=== PATIENT | male | born 1960 | race Caucasian/White ===

== ENCOUNTER 2016-07-16 08:02 | Inpatient (IN) | payer BC ==
[2016-07-12 13:36] VITALS: Ht 174 cm; Wt 160.1 kg
[2016-07-13 07:17] VITALS: BP_SYST 120; RESP 20; TEMP 99.5
[2016-07-16] VITALS (10 sets, daily range): BP systolic 101–143; RESP 16–21; TEMP 96.8–99.5
[~2016-07-16] VITALS: Ht 174 cm; Wt 160.1 kg
[2016-07-16] MEDS ORDERED: CLINDAMYCIN 900 MG in DEXTROSE 5% 50 ML IV ONE (08:30)
[2016-07-16] MEDS ORDERED: MIDAZOLAM 2 MG/2 ML INJ IV ONE (09:10)
[2016-07-16] MEDS ORDERED: LACT RINGERS 1,000 ML IV SCH (09:10)
[2016-07-16] MEDS ORDERED: GLYCOPYRROLATE 0.2 MG/ML VIAL IV ONE ×2 (09:10→14:12)
[2016-07-16] MEDS ORDERED: LIDOCAINE 1% BUFFERED 1 ML SYR INTRADERM PRN (09:10)
[2016-07-16] MEDS ORDERED: MEPERIDINE 25 MG/ML IV PRN (11:25)
[2016-07-16] MEDS ORDERED: ONDANSETRON 4 MG VIAL IV PRN (11:25)
[2016-07-16] MEDS ORDERED: OXYCODONE 5 MG TAB PO PRN ×2 (11:25→12:50)
[2016-07-16] MEDS ORDERED: MORPHINE 4 MG/ML SYR IV PRN ×2 (11:25→12:50)
[2016-07-16] MEDS ORDERED: MORPHINE 2 MG/ML SYR IV PRN ×2 (11:25→12:50)
[2016-07-16] MEDS ORDERED: ACETAMINOPHEN 325 MG TAB PO PRN (12:50)
[2016-07-16] MEDS: DILAUDID 1 MG/ML AMP IV PRN ×2 (13:00→13:10)
[2016-07-16] MEDS: OXYCODONE 5 MG TAB PO PRN ×2 (13:46→15:27)
[2016-07-16] MEDS ORDERED: METHYLPREDNISOLONE ACETATE 40 MG/ML IM ONE (13:52)
[2016-07-16] MEDS ORDERED: THROMBIN 5000 UNIT KIT TOPICAL ONE (13:52)
[2016-07-16] MEDS ORDERED: GELATIN SPONGE 12 CM2 TOPICAL ONE (13:52)
[2016-07-16] MEDS ORDERED: BUPIVACA/EPI 0.5% 50ML NERVEBLOCK ONE (13:52)
[2016-07-16] MEDS ORDERED: BACITRACIN 50,000 UNITS INJ IRRIG ONE (13:52)
[2016-07-16] MEDS ORDERED: PROPOFOL 20 ML VIAL IV ONE (14:12)
[2016-07-16] MEDS ORDERED: ROCURONIUM 50 MG VIAL IV ONE (14:12)
[2016-07-16] MEDS ORDERED: NEOSTIGMINE 10 MG/10 ML VIAL IV ONE (14:12)
[2016-07-16] MEDS ORDERED: LIDOCAINE 2% SYR 5 ML IV ONE (14:12)
[2016-07-16] MEDS ORDERED: DEXAMETHASONE 4 MG/ML VIAL IV ONE (14:12)
[2016-07-16] MEDS ORDERED: FENTANYL 100 MCG/2 ML AMP IV ONE (14:12)
== END 2016-07-16 20:00 | disposition home or self-care (01) | DRG 520 ==
LOC: SDS 08:02
PROVIDERS: ADMIT Neurological Surgery; ATTEND Neurological Surgery
PROC: 00NY3ZZ Release Lumbar Spinal Cord, Percutaneous Approach (ICD-10-PCS; principal; 2016-07-16 10:49)
DX: M48.06 Spinal stenosis, lumbar region (principal); M54.16 Radiculopathy, lumbar region
CPT/HCPCS: 36415; 76000; 80048